=== PATIENT | male | born 1965 | race Caucasian/White ===

== ENCOUNTER 2017-05-09 10:16 | Emergency (ER) | payer OTHER ==
[~2017-05-09] VITALS: Ht 180.3 cm; Wt 71.9 kg
[~2017-05-09 10:16] MED LIST: ACET-1256 PO; ASCO500T16 PO; CYCL10TA6 PO; GABA-112 PO; METH4PAK PO; OXYC1TAB3 PO; PRENTAB26 PO
[2017-05-09 10:24] VITALS: TEMP 37.3; Ht 180.3 cm; Wt 71.9 kg
[2017-05-09 11:18] LABS: BASO % 0.2 %; BASO ABS # 0.01 K/uL (0-0.2); EOS % 0.6 %; EOS ABS # 0.03 K/uL (0-0.5); IG# 0.01 K/uL (0.00-0.02); LYMPH % 24.4 %; LYMPH ABS # 1.13 K/uL (1.2-3.4); MEAN CELL VOLUME 90.9 fL (80-100); MEAN CORPUSCULAR HEMOGLOBIN 31.7 pg (25-34); MEAN CORPUSCULAR HGB CONC 34.9 g/dl (32-36); MEAN PLATELET VOLUME 9.2 fL (7.4-10.4); MONO % 7.1 %; MONO ABS # 0.33 K/uL (0.11-0.59); NEUT % 67.5 %; NEUT ABS # 3.13 K/uL (1.4-6.5); PLATELET COUNT 163 K/uL (130-400); RED CELL DISTRIBUTION WIDTH CV 13.8 % (11.5-14.5); RED CELL DISTRIBUTION WIDTH SD 45.5 fL (36.4-46.3); WHITE BLOOD COUNT 4.64 K/uL (4.8-10.8)
--- NOTE | 2017-05-09 11:36 | DIAGNOSTIC IMAGING REPORT ---
PA CHEST WITH ABDOMINAL SERIES CLINICAL HISTORY: Constipation. FINDINGS: 2 PA chest radiographs are compared to study dated 09/11/2014. The cardiomediastinal silhouette is unremarkable. Chronic pleural parenchymal change is seen at the right lung base. No airspace consolidation or pleural effusion is identified. Apical scarring is observed. No pneumothorax is seen. There is chronic posterior matter deformity of the right lower ribs. Supine and erect abdominal radiographs are correlated with abdominal CT dated 09/11/2014. There is a nonobstructed abdominal bowel gas pattern. There is mild to moderate colonic fecal retention. No evidence of intraperitoneal free air is seen. There are no abnormal abdominal calcifications. There are postoperative changes from L2-S1 spinal fusion. Iliac bolts are in place. The lumbosacral spine and bony pelvis appear intact. IMPRESSION: 1. No active disease in the chest. 2. Nonobstructed abdominal bowel gas pattern. Electronically signed by: Ted Barriga M.D. 05/09/2017 11:34 AM Dictated Date/Time: 05/09/2017 11:32 AM
[2017-05-09] MEDS ORDERED: MILK AND MOLASSES ENEMA PR STA (11:53)
[2017-05-09] MEDS ORDERED: MAGNESIUM HYDROXIDE SUSP 30 ML UDC PO ONE (12:00)
[2017-05-09 12:05] LABS: ALBUMIN 3.9 gm/dl (3.4-5.0); CALCIUM 8.7 mg/dl (8.5-10.1); CREATININE 0.76 mg/dl (0.60-1.40); POTASSIUM 3.6 mmol/L (3.5-5.1)
[2017-05-09 12:08] LABS: TOTAL PROTEIN 7.3 gm/dl (6.4-8.2)
[2017-05-09 12:50] VITALS: BP 110/69; PULSE 57; O2SAT 97
--- NOTE | 2017-05-09 16:54 | EMERGENCY ROOM VISIT NOTE ---
History Report prepared by Eliza: Lio Ledesma Under the Supervision of: Dr. Patrick Melendez M.D. First contact with patient: 10:33 Chief Complaint: UNABLE TO VOID Stated Complaint: HAVING TROUBLE GOING TO BATHROOM Nursing Triage Summary: Patient presents with c/o increased difficulty voiding States he had constipation that began 2 weeks ago and difficulty voiding began in the last few days States he is having increased urinary urgency and frequency but is unable to void much when he tries to urinate History of Present Illness The patient is a 51 year old male who presents to the Emergency Room with complaints of a persistent trouble urinating starting five days ago. He rates his discomfort as a 5/10 in severity. The patient states that for the last two weeks he has been having trouble having a bowel movement. He reports that he feels as if he needs to have a bowel movement every 30 minutes. The patient states that when he tries to have a bowel movement, he usually just releases gas and a clear liquid. He reports that he was able to have a small bowel movement this morning. The patient reports that for the last five days he has also been experiencing trouble with urination. He states that when he does urinate he only is able to urinate a small amount. The patient states that his trouble urinating has been accompanied by lower abdominal discomfort. He reports that he was able to urinate two hours ago. He states he is currently experiencing some mild lower abdominal discomfort. The patient denies vomiting, using laxatives, fever, abdominal distension, medical problems, and similar symptoms in the past. Source of History: patient Onset: five days ago Position: other (global) Symptom Intensity: 5/10 Quality: other (trouble urinating) Timing: constant Associated Symptoms: + abdominal pain, No fevers, No vomiting Note: Associated symptoms: constipation, "clear, pus-like fluid" from rectum. Review of Systems See HPI for pertinent positives & negatives. A total of 10 systems reviewed and were otherwise negative. Past Medical & Surgical Medical Problems: (1) Pneumothorax (2) Spasm of back muscles Family History Patient reports no known family medical history. Social History Smoking Status: Current Every Day Smoker Alcohol Use: none Marital Status: in relationship Housing Status: lives with significant other Occupation Status: employed Current/Historical Medications No Active Prescriptions or Reported Meds Allergies Coded Allergies: No Known Allergies (Unverified , 05/09/17) Physical Exam Vital Signs Date Time Temp Pulse Resp B/P (MAP) Pulse Ox O2 Delivery O2 Flow Rate FiO2 05/09/17 12:50 57 18 110/69 97 Room Air 05/09/17 11:35 70 18 105/74 97 Room Air 05/09/17 10:24 37.3 83 16 109/76 99 Room Air Physical Exam Constitutional: Vital signs reviewed. Eyes: Pupils are equal round reactive to light. Conjunctiva are noninjected. ENT: Pharynx is clear without erythema or exudate. Mucous membranes are moist. Neck supple without meningeal signs. Respiratory: Clear to auscultation bilaterally. Breath sounds are equal bilaterally. Cardiovascular: Regular rate and rhythm. No rubs or gallops. GI: Soft, nondistended. Mild suprapubic tenderness. Bowel sounds are present. Musculoskeletal: No peripheral edema. No CVA tenderness. Integumentary: No cyanosis. Neurological: The patient is awake and alert. No focal deficits. Psychiatric: Normal affect. Medical Decision & Procedures ER Provider Diagnostic Interpretation: X-ray results as stated below per interpretation by me and the radiologist: PA CHEST WITH ABDOMINAL SERIES CLINICAL HISTORY: Constipation. FINDINGS: 2 PA chest radiographs are compared to study dated 09/11/2014. The cardiomediastinal silhouette is unremarkable. Chronic pleural parenchymal change is seen at the right lung base. No airspace consolidation or pleural effusion is identified. Apical scarring is observed. No pneumothorax is seen. There is chronic posterior matter deformity of the right lower ribs. Supine and erect abdominal radiographs are correlated with abdominal CT dated 09/11/2014. There is a nonobstructed abdominal bowel gas pattern. There is mild to moderate colonic fecal retention. No evidence of intraperitoneal free air is seen. There are no abnormal abdominal calcifications. There are postoperative changes from L2-S1 spinal fusion. Iliac bolts are in place. The lumbosacral spine and bony pelvis appear intact. IMPRESSION: 1. No active disease in the chest. 2. Nonobstructed abdominal bowel gas pattern. Electronically signed by: Ted Barriga M.D. 05/09/2017 11:34 AM Dictated Date/Time: 05/09/2017 11:32 AM Laboratory Results 05/09/17 11:00 Red Blood Count 4.73, Mean Corpuscular Volume 90.9, Mean Corpuscular Hemoglobin 31.7, Mean Corpuscular Hemoglobin Concent 34.9, Mean Platelet Volume 9.2, Neutrophils (%) (Auto) 67.5, Lymphocytes (%) (Auto) 24.4, Monocytes (%) (Auto) 7.1, Eosinophils (%) (Auto) 0.6, Basophils (%) (Auto) 0.2, Neutrophils # (Auto) 3.13, Lymphocytes # (Auto) 1.13, Monocytes # (Auto) 0.33, Eosinophils # (Auto) 0.03, Basophils # (Auto) 0.01 05/09/17 11:00 Test 05/09/17 11:00 05/09/17 11:35 White Blood Count 4.64 K/uL (4.8-10.8) Red Blood Count 4.73 M/uL (4.7-6.1) Hemoglobin 15.0 g/dL (14.0-18.0) Hematocrit 43.0 % (42-52) Mean Corpuscular Volume 90.9 fL (80-100) Mean Corpuscular Hemoglobin 31.7 pg (25-34) Mean Corpuscular Hemoglobin Concent 34.9 g/dl (32-36) Platelet Count 163 K/uL (130-400) Mean Platelet Volume 9.2 fL (7.4-10.4) Neutrophils (%) (Auto) 67.5 % Lymphocytes (%) (Auto) 24.4 % Monocytes (%) (Auto) 7.1 % Eosinophils (%) (Auto) 0.6 % Basophils (%) (Auto) 0.2 % Neutrophils # (Auto) 3.13 K/uL (1.4-6.5) Lymphocytes # (Auto) 1.13 K/uL (1.2-3.4) Monocytes # (Auto) 0.33 K/uL (0.11-0.59) Eosinophils # (Auto) 0.03 K/uL (0-0.5) Basophils # (Auto) 0.01 K/uL (0-0.2) RDW Standard Deviation 45.5 fL (36.4-46.3) RDW Coefficient of Variation 13.8 % (11.5-14.5) Immature Granulocyte % (Auto) 0.2 % Immature Granulocyte # (Auto) 0.01 K/uL (0.00-0.02) Anion Gap 3.0 mmol/L (3-11) Est Creatinine Clear Calc Drug Dose 119.6 ml/min Estimated GFR () 124.2 Estimated GFR (Non- 107.1 BUN/Creatinine Ratio 16.9 (10-20) Calcium Level 8.7 mg/dl (8.5-10.1) Total Bilirubin 0.6 mg/dl (0.2-1) Direct Bilirubin 0.1 mg/dl (0-0.2) Aspartate Amino Transf (AST/SGOT) 15 U/L (15-37) Alanine Aminotransferase (ALT/SGPT) 22 U/L (12-78) Alkaline Phosphatase 67 U/L (45-117) Total Protein 7.3 gm/dl (6.4-8.2) Albumin 3.9 gm/dl (3.4-5.0) Lipase 78 U/L (73-393) Urine Color YELLOW Urine Appearance CLEAR (CLEAR) Urine pH 7.5 (4.5-7.5) Urine Specific [place] 1.019 (1.000-1.030) Urine Protein NEG (NEG) Urine Glucose (UA) NEG (NEG) Urine Ketones NEG (NEG) Urine Occult Blood NEG (NEG) Urine Nitrite NEG (NEG) Urine Bilirubin NEG (NEG) Urine Urobilinogen NEG (NEG) Urine Leukocyte Esterase NEG (NEG) Laboratory results as reviewed by me. Medications Administered Medications (Trade) Dose Ordered Sig/Fabiana Route Start Time Stop Time Status Last Admin Dose Admin Miscellaneous Medication (Milk And Molasses Enema) 1 ea ONE STAT [place] 05/09/17 11:53 05/09/17 11:55 DC 05/09/17 11:53 1 EA Magnesium Hydroxide (Milk Of Magnesia Susp) 30 ml NOW ONCE PO 05/09/17 12:00 05/09/17 12:01 DC 05/09/17 12:10 30 ML ED Course 1037: The patient was evaluated in room B06. A complete history and physical exam was performed. 1151: I reevaluated the patient and discussed x-ray results. He is amenable to both laxative and enema treatment. 1153: Ordered Milk and Molasses Enema 1 each W[place]. 1200: Ordered Magnesium Hydroxide 30 ml PO. 1316: I reevaluated the patient and he is feeling better. He had a bowel movement after his enema. I discussed the treatment plan, which he agrees to. The patient is ready for discharge. Medical Decision This is a 51-year-old male who presents with difficulty defecating and urinating. Differential diagnosis includes constipation, fecal impaction, bowel obstruction, abdominal mass, urinary retention, prostatic hypertrophy, UTI. I did perform a limited focused review of portions of the patient's old chart on the electronic medical record. The patient has had no recent pertinent visits to this hospital. I did evaluate the patient as noted above. The patient is presenting with difficulty defecating for about 2 weeks. He states he has not had a normal bowel movement 2 weeks. He also developed difficulty urinating over the past several days. His exam is fairly unremarkable other than some mild suprapubic tenderness. Bladder scan was performed which showed 250 cc of urine. I did order and personally review the patient's abdominal and chest x-ray as described above. He does have significant fecal retention without evidence of impaction or obstruction. I did order and review the patient's blood work as noted in the electronic medical record. Renal function tests are normal. Electrolytes are unremarkable. Urinalysis does not show any signs of infection or blood. I did discuss the test results with the patient. I did order milk of magnesia as well as a milk and molasses enema. He did have a successful bowel movement after the treatment. He stated that he felt much better. He has not felt the urge to urinate since. I did recommend that he continue using MiraLAX [id number] for his constipation. Should his urinary symptoms not resolve once his constipation was resolved he may need further evaluation by his PCP. He was discharged in good condition and advised to make an appointment with his doctor for follow-up. Medication Reconcilliation Current Medication List: was personally reviewed by me Blood Pressure Screening Patient's blood pressure: Normal blood pressure Impression Primary Impression: Constipation Additional Impression: Dysuria Scribe Attestation The scribe's documentation has been prepared under my direct and personally reviewed by me in its entirety. I confirm that the note above accurately reflects all work, treatment, procedures, and medical decision making performed by me. Departure Information Dispostion Home / Self-Care Prescriptions No Active Prescriptions or Reported Meds Referrals No Doctor, Assigned (PCP) Anthony See M.D. Forms HOME CARE DOCUMENTATION FORM, IMPORTANT VISIT INFORMATION, WORK / SCHOOL INSTRUCTIONS Patient Instructions ED Constipation, My [facility] Additional Instructions You have been examined and treated today on an emergency basis only. This is not a substitute for, or an effort to provide, complete comprehensive medical care. It is impossible to recognize and treat all injuries or illnesses in a single emergency department visit. It is therefore important that you follow up closely with your physician. Call as soon as possible for an appointment. Return for worsening symptoms or if you develop fever, vomiting, abdominal pain or distention or any other concerning symptoms. Use MiraLAX to help with bowel movements. If your urinary symptoms do not resolve after your constipation is resolved then see your doctor about further evaluation, including evaluation of your prostate gland. Problem Qualifiers Primary Impression: Constipation Constipation type: unspecified constipation type Qualified Codes: K59.00 - Constipation, unspecified
== END 2017-05-09 13:46 | disposition home or self-care (01) ==
LOC: C.EDB 10:19
DX: K59.00 Constipation, unspecified (principal); R30.0 Dysuria; F17.210 Nicotine dependence, cigarettes, uncomplicated